=== PATIENT | male | born 1995 | race African-American/Black ===

== ENCOUNTER 2018-10-25 23:04 | Emergency (ER) | payer SELFPAY ==
[~2018-10-25] VITALS: Ht 170.2 cm; Wt 68.2 kg
[2018-10-25 23:08] VITALS: BP 134/80; TEMP 97.3
[2018-10-25] MEDS ORDERED: MELATONIN1 MG (23:21)
[2018-10-25 23:54] VITALS: PULSE 86
== END 2018-10-25 23:54 | disposition home or self-care (01) ==
LOC: COL.ER 23:04
DX: S01.81XA Laceration without foreign body of other part of head, initial encounter (principal); F17.210 Nicotine dependence, cigarettes, uncomplicated; J45.909 Unspecified asthma, uncomplicated; W01.198A Fall on same level from slipping, tripping and stumbling with subsequent striking against other object, initial encounter; Y92.009 Unspecified place in unspecified non-institutional (private) residence as the place of occurrence of the external cause